=== PATIENT | male | born 1950 | race Caucasian/White ===

== ENCOUNTER 2018-10-24 13:18 | Observation (INO) ==
--- NOTE | 2018-10-24 13:48 | ED ---
HPI General Chief complaint: Respiratory Symptoms Stated complaint: Coughing up blood/chest congestion Time Seen by Provider: 10/24/18 13:32 Source: patient Mode of arrival: ambulatory Limitations: no limitations History of Present Illness HPI narrative: Patient has a past medical history of hypertension cholecystectomy tonsillectomy hernia repair and eye surgery. Patient used to be a primary care patient of Dr. Price, however dr price has since retired. patient came in complaining of productive cough over the last 2 days initially with yellow sputum, which then this morning turned into bloody sputum. Patient denies any night sweats weight loss. And according to the patient is only on carvedilol and lisinopril. has no close follow up currently. Related Data Home Medications Medication Instructions Recorded Confirmed carvedilol 6.25 mg PO BID 06/07/18 10/24/18 lisinopril 5 mg PO BID 06/07/18 10/24/18 Previous Rx's Medication Instructions Recorded amoxicillin-pot clavulanate 1 tab PO Q12H 6 Days #12 tab 10/25/18 [Augmentin] apixaban [Eliquis] 5 mg PO BID 60 Days #240 tab 10/25/18 apixaban [Eliquis] 10 mg PO BID 6 Days #24 tab 10/25/18 benzonatate [Tessalon Perles] 100 mg PO Q8H PRN 5 Days cap 10/25/18 guaifenesin [Mucinex] 600 mg PO BID 5 Days #10 tab 10/25/18 Allergies Allergy/AdvReac Type Severity Reaction Status Date / Time No Known Allergies Allergy Verified 10/24/18 13:24 Review of Systems ROS: all other systems reviewed are negative PMFSH History History Provided By: Patient Medical History Medical History Diabetes (Acute) HTN (hypertension) (Acute) Surgical History Surgical History History of eye surgery (Acute) History of hernia repair (Acute) Hx of cholecystectomy (Acute) Hx of tonsillectomy (Acute) Family History Family History Other Family history in first degree relatives is unremarkable Family history non-contributory Social History Social History Substance History: No History of Abuse Second Hand Smoke Exposure: No Smoking Status: Never smoker How Often Do You Have a Drink Containing Alcohol: Monthly or less Recent Travel in [facility] within the Last 8 Weeks: No Recent Out of Country Travel within the Last 8 Weeks: No Exam HENMT Head: normocephalic and atraumatic Nose: no nasal discharge and no epistaxis Mouth: moist mucous membranes Eyes Sclera: normal sclerae Pupils: PERRL Neck Neck: trachea midline and no JVD Resp Effort & Inspection: normal respiratory effort, able to speak in complete sentences and no use of accessory muscles Auscultation: rhonchi left lower Cardio Rate: regular rate Rhythm: regular rhythm Heart Sounds: no murmurs GI Inspection: non-distended Palpation: soft, no hepatosplenomegaly and nontender Skin General: dry skin (warm) Neuro General: alert and awake Cranial Nerves: other Speech: speech normal Motor: no movement abnormalities noted Extrem General: normal to inspection, no clubbing, no cyanosis and edema (LLE edema, without erythema or streaking) Laterality: on the left Psych Mood: congruent mood Affect: normal affect Judgment: judgment good Course Initial Documented Vital Signs Temperature 97.9 F 10/24/18 13:21 Pulse Rate 67 10/24/18 13:21 Respiratory Rate 18 10/24/18 13:21 Blood Pressure 155/76 H 10/24/18 13:21 Pulse Oximetry 97 10/24/18 13:21 Last Documented Vital Signs Temperature 96.8 F L 10/25/18 08:32 Pulse Rate 71 10/25/18 08:32 Respiratory Rate 24 10/25/18 08:32 Blood Pressure 153/98 H 10/25/18 08:32 Pulse Oximetry 94 L 10/25/18 08:32 Medical Decision Making [facility] Narrative Medical Screen Exam Complete: Yes Emergency Medical Condition: Yes Medical Records Medical records reviewed: Yes I reviewed the patient's medical records. Lab Data Lab results reviewed: Yes I reviewed the patient's lab results. Result diagrams: 10/25/18 07:33 10/25/18 07:33 Lab Results 10/24/18 10/24/18 10/24/18 Range/Units 13:57 13:57 13:57 CBC w Diff Auto diff final WBC 5.6 (4.0-11.0) th/mm3 RBC 4.36 L (4.50-5.90) mil/mm3 Hgb 13.8 (13.0-17.0) gm/dL Hct 41.4 (39.0-51.0) % MCV 94.9 (80.0-100.0) fL MCH 31.6 (27.0-34.0) pg MCHC 33.3 (32.0-36.0) % RDW 13.4 (11.6-17.2) % Plt Count 118 L (150-450) th/mm3 MPV 8.9 (7.0-11.0) fL Neut % (Auto) 61.3 (16.0-70.0) % Lymph % (Auto) 25.2 (9.0-44.0) % [place] % (Auto) 10.1 H (0.0-8.0) % Eos % (Auto) 2.4 (0.0-4.0) % Baso % (Auto) 1.0 (0.0-2.0) % Neut # (Auto) 3.4 (1.8-7.7) th/mm3 Lymph # (Auto) 1.4 (1.0-4.8) th/mm3 [place] # (Auto) 0.6 (0.0-0.9) th/mm3 Eos # (Auto) 0.1 (0.0-0.4) th/mm3 Baso # (Auto) 0.1 (0.0-0.2) th/mm3 WBC Differential . Differential Comment . PT 10.6 (9.8-11.6) sec INR 1.0 Ratio APTT 26.8 (23.4-31.7) sec Sodium 141 (136-145) meq/L Potassium 4.5 (3.5-5.1) meq/L Chloride 106 (98-107) meq/L Carbon Dioxide 29.3 (21.0-32.0) meq/L Anion Gap 6 (5-15) meq/L BUN 13 (7-18) mg/dL Creatinine 0.91 (0.60-1.30) mg/dL Estimated GFR 82 L (>89) mL/min Random Glucose 129 H (74-106) mg/dL Calcium 8.4 L (8.5-10.1) mg/dL Troponin I Less than 0.02 L (0.02-0.05) ng/mL 10/24/18 10/25/18 10/25/18 Range/Units 21:20 07:33 07:33 CBC w Diff Auto diff final WBC 4.5 (4.0-11.0) th/mm3 RBC 4.78 (4.50-5.90) mil/mm3 Hgb 14.9 (13.0-17.0) gm/dL Hct 45.5 (39.0-51.0) % MCV 95.3 (80.0-100.0) fL MCH 31.2 (27.0-34.0) pg MCHC 32.8 (32.0-36.0) % RDW 13.7 (11.6-17.2) % Plt Count 135 L (150-450) th/mm3 MPV 7.8 (7.0-11.0) fL Neut % (Auto) 61.0 (16.0-70.0) % Lymph % (Auto) 23.6 (9.0-44.0) % [place] % (Auto) 12.0 H (0.0-8.0) % Eos % (Auto) 3.0 (0.0-4.0) % Baso % (Auto) 0.4 (0.0-2.0) % Neut # (Auto) 2.8 (1.8-7.7) th/mm3 Lymph # (Auto) 1.1 (1.0-4.8) th/mm3 [place] # (Auto) 0.5 (0.0-0.9) th/mm3 Eos # (Auto) 0.1 (0.0-0.4) th/mm3 Baso # (Auto) 0.0 (0.0-0.2) th/mm3 WBC Differential . Differential Comment . PT (9.8-11.6) sec INR Ratio APTT 28.7 (23.4-31.7) sec Sodium 141 (136-145) meq/L Potassium 4.3 (3.5-5.1) meq/L Chloride 103 (98-107) meq/L Carbon Dioxide 29.9 (21.0-32.0) meq/L Anion Gap 8 (5-15) meq/L BUN 10 (7-18) mg/dL Creatinine 0.82 (0.60-1.30) mg/dL Estimated GFR Greater than 89 (>89) mL/min Random Glucose 127 H (74-106) mg/dL Calcium 8.8 (8.5-10.1) mg/dL Troponin I (0.02-0.05) ng/mL Imaging Data Attestation: I personally reviewed and interpreted this imaging study as follows : Radiologist's impression: Chest CTA 10/24/18 13:43 CONCLUSION: This study is negative for pulmonary embolism. Venous Doppler Study 10/24/18 14:15 CONCLUSION: 1. DVT in the left lower extremity as above. ECG Data EKG Prior to Arrival: No Attestation: I personally reviewed and interpreted this ECG as follows: Prior ECG tracings: not available for review Interpretation: Normal sinus rhythm, 66 bpm, left axis deviation, borderline right bundle branch block pattern Discharge Plan Discharge Disposition Patient Disposition: 30 Still Patient Discharge Condition Condition: Stable Discharge Order Discharge Orders: Discharge Order (Routine); Ordered 10/25/18 Ordered By: Jenna Myers Discharge Details Anticipated Discharge Date: 10/25/18 Discharge Comment: please take Eliquis 10 mg PO BID x 6 days and then 5 mg PO BID thereafter. Diagnosis: Left lower lobe pneumonia, DVT of lower limb, acute Physicians Team ED Provider: Jimenez Vera Primary Care Provider: Primary Care Dalila Payne Attending Provider: Caden Regalado ED Status: Left Department Discharge Information Discharge Date/Time: 10/24/18 17:05
[2018-10-24 14:17] LABS: Chloride 106 meq/L (98-107); Potassium 4.5 meq/L (3.5-5.1); Sodium 141 meq/L (136-145)
[2018-10-24 14:19] LABS: Calcium 8.4 mg/dL (8.5-10.1)
[2018-10-24 14:20] LABS: Anion Gap 6 meq/L (5-15); Blood Urea Nitrogen 13 mg/dL (7-18); Carbon Dioxide 29.3 meq/L (21.0-32.0); Glucose,Random 129 mg/dL (74-106)
[2018-10-24 14:23] LABS: Glomerular Filtration Rate 82 mL/min (>89)
--- NOTE | 2018-10-24 14:41 | US ---
EXAM DATE: 10/24/2018 2:38 PM EST AGE/SEX: 68 years / Male INDICATIONS: Left leg edema. CLINICAL DATA: This is the patient's initial encounter. Patient reports that signs and symptoms have been present for 1 week and indicates a pain score of 0/10. MEDICAL/SURGICAL HISTORY: Hypertension. Tonsillectomy. Cholecystectomy. Eye surgery x7. Hernia repair. COMPARISON: No prior exams available for comparison. TECHNIQUE: Venous ultrasound of both lower extremities was performed from the inguinal ligament to t he proximal calf. Real-time, color Doppler and spectral tracing, compression and augmentation techni ques were used. FINDINGS: The examination demonstrates deep venous thrombosis throughout the left thigh. It should b e noted, the patient has a duplicated saphenofemoral venous system. There is thrombus seen in both. CONCLUSION: 1. DVT in the left lower extremity as above. Electronically signed by: Enrique Fortune MD 10/24/2018 2:40 PM EST
[2018-10-24] MEDS ORDERED: Heparin 10,000 UNITS/10 ML Vial (for IV use) IV.PUSH STA (14:47)
--- NOTE | 2018-10-24 15:04 | CT ---
EXAM DATE: 10/24/2018 2:53 PM EST AGE/SEX: 68 years / Male INDICATIONS: Cough x 3 days. Hemoptysis today. CLINICAL DATA: This is the patient's initial encounter. Patient reports that signs and symptoms have been present for 3 days and indicates a pain score of 0/10. MEDICAL/SURGICAL HISTORY: Hypertension. Cholecystectomy. Inguinal hernia repair. RADIATION DOSE: 19.95 CTDI (mGy) COMPARISON: No prior exams available for comparison. TECHNIQUE: Volumetric scanning was performed using a multi-row detector CT scanner during bolus infu agustina of 75 ml Omnipaque 350 (iohexol) nonionic water-soluble contrast as a single exam dose. The esvin a was post processed with a variety of visualization algorithms including full volume maximum intensi ty projection and sliding thin slab reformation. Using automated exposure control and adjustment of the mA and/or kV according to patient size, radiation dose was kept as low as reasonably achievable t o obtain optimal diagnostic quality images. DICOM format image data is available electronically for review and comparison. FINDINGS: Pulmonary Arteries: No filling defects are seen in the pulmonary arteries out to the subsegmental ve ssels. The left and right pulmonary arteries are normal in diameter. Lung: Infiltrate in the posterior left lung base. Mild basilar bronchiectasis. Slight atelectasis in the right base. Effusion: None. Mediastinum: No evidence of mediastinal or hilar adenopathy. Other: The axilla is unremarkable. CONCLUSION: This study is negative for pulmonary embolism. Electronically signed by: Sami Fong MD 10/24/2018 3:03 PM EST
[2018-10-24 15:28] LABS: Activated Partial Thrombo Time 26.8 sec (23.4-31.7); Prothrombin Time 10.6 sec (9.8-11.6)
[2018-10-24] MEDS ORDERED: Azithromycin Inj 500 MG in Sodium Chlor 0.9% Inj 250 ML IV.SIG ONE (15:30)
[2018-10-24] MEDS ORDERED: Bisacodyl 10 MG Supp RECTAL PRN (16:48)
[2018-10-24] MEDS ORDERED: Acetaminophen 325 MG Tablet PO PRN (16:48)
--- NOTE | 2018-10-24 17:12 | P.HP ---
History of Present Illness Primary Care Physician: No Primary Care Physician Chief Complaint: Cough and Left lower leg swelling History of Present Illness: This is a pleasant 68-year-old male patient with a known medical history of hypertension who presented to the ED with multiple complaints including cough with hemoptysis as well as left lower extremity swelling. Patient states over the past week he has had a productive cough has been yellow tinged in color although this morning he states he noticed bright red blood when he coughed. He denies any recent antibiotic use. He was, chills, headache, chest pain, vomiting, nausea, vomiting, diarrhea or dysuria, night sweats or weight loss. He does also complain that his left lower leg has been swelling, denies any pain with ambulation or movement. Patient does not currently have a primary care physician, was following with Dr. Price although he has now switched insurances and was looking for a primary care provider. Patient does follow with director corporate compliance Dr. Cedillo, last seen a month and a half ago without any changes to his medications. Upon exam patient sitting up in bed comfortably no apparent distress. Denies any pain. Has not had any continued hemoptysis. A left lower extremity ultrasound was done showing presence of DVT. A CT of the chest was negative for PE. Does show left lower lung pneumonia. - Diagnosis (1) Left lower lobe pneumonia (2) DVT of lower limb, acute Review of Systems All other systems reviewed negative except as stated in HPI PMFSH - History History Provided By: Patient - Medical History Medical History: Medical History (Last Reviewed 10/24/18 @ 17:11 by Jenna Myers) HTN (hypertension) - Surgical History Surgical History: Surgical History (Last Reviewed 10/24/18 @ 17:11 by Jenna Myers) Hx of cholecystectomy History of eye surgery History of hernia repair Hx of tonsillectomy - Family History Family History: Family History (Last Updated 10/24/18 @ 17:11 by Jenna Myers) Other Family history in first degree relatives is unremarkable Family history non-contributory - Social History I have reviewed the patient's Social History: Yes - Tobacco History Second Hand Smoke Exposure: No Smoking Status: Never smoker - Alcohol History How Often Do You Have a Drink Containing Alcohol: Monthly or less - Substance Use History Substance History: No History of Abuse - Travel History Recent Travel in the [facility] Within the Last 8 Weeks: No Recent Travel Out of the Country Within the Last 8 Weeks: No - Immunization History Tetanus Immunization: >5 Years Medications and Allergies Active Medications: Active Medications Acetaminophen (Tylenol) 650 mg PO Q4H PRN PRN Reason: Temp > 100.4 Al Hydroxide/Mg Hydroxide (Milk Of Magnesia Liq) 30 ml PO Q12H PRN PRN Reason: Mild Constipation Bisacodyl (Dulcolax Supp) 10 mg RECTAL DAILY PRN PRN Reason: SEVERE CONSITIPATION Lactulose (Lactulose Liq) 30 ml PO DAILY PRN PRN Reason: SEVERE CONSITIPATION Ondansetron HCl (Zofran Inj) 4 mg IV.PUSH Q6H PRN PRN Reason: NAUSEA OR VOMITING Sennosides (Senokot) 17.2 mg PO Q12H PRN PRN Reason: Moderate Constipation Sodium Chloride (Ns Flush) 2 ml IV.FLUSH BID [place] Sodium Chloride (Ns Flush) 2 ml IV.FLUSH PRN PRN PRN Reason: FLUSH AFTER USING IV ACCESS Allergies Allergy/AdvReac Type Severity Reaction Status Date / Time No Known Allergies Allergy Verified 10/24/18 13:24 Home Medications Medication Instructions Recorded Confirmed Type carvedilol 6.25 mg PO BID 06/07/18 10/24/18 History lisinopril 5 mg PO BID 06/07/18 10/24/18 History Exam Vital signs: Vital Signs 10/24/18 13:21 10/24/18 14:48 10/24/18 16:53 Temperature 97.9 F Pulse Rate 67 68 77 Respiratory Rate 18 17 20 Blood Pressure 155/76 H 152/84 H 152/82 H Pulse Oximetry 97 96 96 Intake & Output 10/23/18 10/24/18 10/24/18 18:59 06:59 18:59 Intake Total 250 / 250 Balance 250 / 250 Weight 108 kg Intake: IV 250 / 250 Azithromycin Inj 500 MG In NS 250 / 250 Inj 250 ML @ 250 mls/hr IV.SIG ONCE ONE Rx#:[id number] Narrative: GENERAL: Well-developed, well-nourished patient in NAD. Comfortable on room air. SKIN: Warm and dry. No rash. HEAD: Normocephalic. Atraumatic. EYES: Pupils equal and round. No scleral icterus. No injection or drainage. ENT: No nasal bleeding or discharge. Mucous membranes pink and moist. NECK: Supple. Trachea midline. CARDIOVASCULAR: Regular rate and rhythm. S1, S2 noted. No murmur appreciated. RESPIRATORY: No accessory muscle use. Diminished breath sounds, no rhonchi or crackles. Breath sounds equal bilaterally. GASTROINTESTINAL: Abdomen soft, non-tender, nondistended. Normoactive bowel sounds x4. MUSCULOSKELETAL: No obvious deformities. Left lower extremity swelling with 2+ pitting edema negative Homans sign. NEUROLOGICAL: Awake and alert. No obvious cranial nerve deficits. Motor grossly within normal limits. 5/5 muscle strength in bilateral upper and lower extremities. Normal speech. PSYCHIATRIC: Appropriate mood and affect; insight and judgment normal. Results - Labs CBC & Chem 7: 10/24/18 13:57 Labs: Laboratory Results - last 24 hr 10/24/18 10/24/18 13:57 13:57 PT 10.6 INR 1.0 APTT 26.8 Sodium 141 Potassium 4.5 Chloride 106 Carbon Dioxide 29.3 Anion Gap 6 BUN 13 Creatinine 0.91 Estimated GFR 82 L Random Glucose 129 H Calcium 8.4 L Troponin I Less than 0.02 L - Imaging Impressions Chest CTA 10/24/18 13:43 CONCLUSION: This study is negative for pulmonary embolism. Venous Doppler Study 10/24/18 14:15 CONCLUSION: 1. DVT in the left lower extremity as above. Caprini VTE Risk Assessment Caprini VTE Risk Assessment: Moderate/High Risk (score >= 2) Caprini Risk Assessment Model: Point Value = 1 Point Value = 2 Point Value = 3 Point Value = 5 Age 41-60 Minor surgery BMI > 25 kg/m2 Swollen legs Varicose veins or History of unexplained or recurrent spontaneous Oral contraceptives or hormone replacement Sepsis (< 1 month) Serious lung disease, including pneumonia (< 1 month) Abnormal pulmonary function Acute myocardial infarction Congestive heart failure (< 1 month) History of inflammatory bowel disease Medical patient at bed rest Age 61-74 Arthroscopic surgery Major open surgery (> 45 min) Laparoscopic surgery (> 45 min) Malignancy Confined to bed (> 72 hours) Immobilizing plaster cast Central venous access Age >= 75 History of VTE Family history of VTE Factor V Leiden Prothrombin [id number] Lupus anticoagulant Anticardiolipin antibodies Elevated serum homocysteine Heparin-induced thrombocytopenia Other congenital or acquired thrombophilia Stroke (< 1 month) Elective arthroplasty Hip, pelvis, or leg fracture Acute spinal cord injury (< 1 month) Prophylaxis Regimen: Total Risk Factor Score Risk Level Prophylaxis Regimen 0-1 Low Early ambulation 2 Moderate Order ONE of the following: *Sequential Compression Device (SCD) *Heparin 5000 units SQ BID 3-4 Higher Order ONE of the following medications: *Heparin 5000 units SQ TID *Enoxaparin/Lovenox 40 mg SQ daily (WT < 150 kg, CrCl > 30 mL/min) *Enoxaparin/Lovenox 30 mg SQ daily (WT < 150 kg, CrCl > 10-29 mL/min) *Enoxaparin/Lovenox 30 mg SQ BID (WT < 150 kg, CrCl > 30 mL/min) AND/OR *Sequential Compression Device (SCD) 5 or more Highest Order ONE of the following medications: *Heparin 5000 units SQ TID (Preferred with Epidurals) *Enoxaparin/Lovenox 40 mg SQ daily (WT < 150 kg, CrCl > 30 mL/min) *Enoxaparin/Lovenox 30 mg SQ daily (WT < 150 kg, CrCl > 10-29 mL/min) *Enoxaparin/Lovenox 30 mg SQ BID (WT < 150 kg, CrCl > 30 mL/min) AND *Sequential Compression Device (SCD) Assessment and Plan - Assessment (1) Left lower lobe pneumonia Code(s): J18.1 - Lobar pneumonia, unspecified organism Status: Acute (2) DVT of lower limb, acute Code(s): I82.409 - Acute embolism and thrombosis of unspecified deep veins of unspecified lower extremity Status: Acute - Plan This is a pleasant 68-year-old male patient who presented to the ED with: Community-acquired pneumonia Productive cough with hemoptysis -Patient complains of productive cough with is yellow tinged with presence of one-time episode of hemoptysis this am. Denies any night sweats or weight loss. Is breathing comfortable on RA. -Chest CT reviewed which is negative for PE although a left lower lobe infiltrate has been noted. -Will check sputum culture. Follow. -Was given Azithromycin in ED, continue. Will also add Ceftriaxone. -Added CBC in lab, assess for leukocytosis. Follow. -Will add incentive spirometer. Encourage deep breathing and coughing. -Supplemental O2 as needed to keep oxygen saturations greater than 90%. Comfortable on room air at this time. -Duo nebs as needed. Add Mucinex. Robitussin for cough. -Supportive care. Left lower extremity DVT -Patient complaint of a 2-week history of left lower extremity swelling. -Left lower extremity US done and showing a left lower extremity thigh DVT. -Was given Heparin in ED. Will start on Eliquis. Will initially be started on 10 mg twice daily times 7 days and then reduce to 5 mg twice daily. -CM has been consulted, patient does not have a PCP to follow up with at this current time due to his prior PCP being out of network now. Will need coupon code and possibly help with establishing with a PCP. -Pain is controlled. Hypertension, chronic -Continue home medications. -Monitor BP trends. DVT Prophylaxis: SCD on right leg. Started on Eliquis. (1) Left lower lobe pneumonia Qualifiers: Pneumonia type: due to unspecified organism Qualified Code(s): J18.1 - Lobar pneumonia, unspecified organism (2) DVT of lower limb, acute Qualifiers: Affected thrombotic vein of extremity: unspecified vein of extremity Laterality: left Qualified Code(s): I82.402 - Acute embolism and thrombosis of unspecified deep veins of left lower extremity
[2018-10-24] MEDS ORDERED: Benzonatate 100 MG Capsule PO PRN (17:25)
[2018-10-24 17:41] LABS: Baso # (Auto) 0.1 th/mm3 (0.0-0.2); Eos # (Auto) 0.1 th/mm3 (0.0-0.4); Eos % (Auto) 2.4 % (0.0-4.0); Hematocrit 41.4 % (39.0-51.0); Hemoglobin 13.8 gm/dL (13.0-17.0); Lymph # (Auto) 1.4 th/mm3 (1.0-4.8); Lymph % (Auto) 25.2 % (9.0-44.0); Mean Corpuscular HGB Conc 33.3 % (32.0-36.0); Mean Corpuscular Hemoglobin 31.6 pg (27.0-34.0); Mean Corpuscular Volume 94.9 fL (80.0-100.0); Mean Platelet Volume 8.9 fL (7.0-11.0); Mono # (Auto) 0.6 th/mm3 (0.0-0.9); Mono % (Auto) 10.1 % (0.0-8.0); Neut # (Auto) 3.4 th/mm3 (1.8-7.7); Neut % (Auto) 61.3 % (16.0-70.0); Platelet Count 118 th/mm3 (150-450); Red Blood Count 4.36 mil/mm3 (4.50-5.90); Red Cell Distribution Width 13.4 % (11.6-17.2); White Blood Count 5.6 th/mm3 (4.0-11.0)
[2018-10-24] MEDS: guaiFENesin 600 MG ER Tablet PO SCH (20:10)
[2018-10-24] MEDS: Carvedilol 6.25 MG Tablet PO SCH (20:10)
[2018-10-24] MEDS: Lisinopril 5 MG Tablet PO SCH (20:10)
[2018-10-25 07:47] LABS: Baso % (Auto) 0.4 % (0.0-2.0); Eos # (Auto) 0.1 th/mm3 (0.0-0.4); Hematocrit 45.5 % (39.0-51.0); Hemoglobin 14.9 gm/dL (13.0-17.0); Lymph # (Auto) 1.1 th/mm3 (1.0-4.8); Lymph % (Auto) 23.6 % (9.0-44.0); Mean Corpuscular HGB Conc 32.8 % (32.0-36.0); Mean Corpuscular Hemoglobin 31.2 pg (27.0-34.0); Mean Corpuscular Volume 95.3 fL (80.0-100.0); Mean Platelet Volume 7.8 fL (7.0-11.0); Mono # (Auto) 0.5 th/mm3 (0.0-0.9); Neut # (Auto) 2.8 th/mm3 (1.8-7.7); Platelet Count 135 th/mm3 (150-450); Red Blood Count 4.78 mil/mm3 (4.50-5.90); Red Cell Distribution Width 13.7 % (11.6-17.2); White Blood Count 4.5 th/mm3 (4.0-11.0)
[2018-10-25 08:06] LABS: Chloride 103 meq/L (98-107); Potassium 4.3 meq/L (3.5-5.1); Sodium 141 meq/L (136-145)
[2018-10-25 08:10] LABS: Anion Gap 8 meq/L (5-15); Blood Urea Nitrogen 10 mg/dL (7-18); Calcium 8.8 mg/dL (8.5-10.1); Carbon Dioxide 29.9 meq/L (21.0-32.0); Glucose,Random 127 mg/dL (74-106)
[2018-10-25 08:14] LABS: Glomerular Filtration Rate Greater Than 89 mL/min (>89)
--- NOTE | 2018-10-25 08:18 | P.PNIM ---
Subjective Interval history: Follow-up left lower DVT and pneumonia. Patient seen and examined, lying in bed comfortably no apparent distress. States that his left lower leg seems to be improving, denies any shortness of breath or chest pain. Afebrile. Vital signs stable. Physical Exam Vital signs: Vital Signs 10/24/18 13:21 10/24/18 14:48 10/24/18 16:53 Temperature 97.9 F Pulse Rate 67 68 77 Respiratory Rate 18 17 20 Blood Pressure 155/76 H 152/84 H 152/82 H Pulse Oximetry 97 96 96 10/24/18 17:47 10/24/18 17:52 10/24/18 19:30 Temperature 96.6 F L Pulse Rate 77 68 Respiratory Rate 15 Blood Pressure 149/89 H Pulse Oximetry 96 98 10/24/18 20:00 10/24/18 20:59 10/25/18 00:00 Temperature 98.5 F 98.6 F Pulse Rate 75 69 65 Respiratory Rate 18 18 Blood Pressure 159/85 H 149/81 H Pulse Oximetry 94 L 93 L 10/25/18 00:01 10/25/18 03:00 Temperature Pulse Rate 67 62 Respiratory Rate Blood Pressure Pulse Oximetry Intake & Output 10/24/18 10/25/18 10/25/18 18:59 06:59 18:59 Intake Total 350 / 350 730 / 730 Output Total 800 / 800 1050 / 1050 Balance -450 / -450 -320 / -320 Weight 111.4 kg 111.5 kg Intake: IV 350 / 350 Azithromycin Inj 500 MG In NS 250 / 250 Inj 250 ML @ 250 mls/hr IV.SIG ONCE ONE Rx#:[id number] Rocephin Inj 1,000 MG In NS Inj 100 / 100 100 ML @ 200 mls/hr IV.SIG Q24H ADEBAYO Rx#:[id number] Oral 730 / 730 Output: Urine 800 / 800 1050 / 1050 Other: Date of Last Bowel Movement 10/24/18 10/24/18 Weight On Admission 111.4 kg Narrative: GENERAL: Well-developed, well-nourished patient in [facility]. Comfortable on room air. SKIN: Warm and dry. No rash. HEAD: Normocephalic. Atraumatic. EYES: Pupils equal and round. No scleral icterus. No injection or drainage. ENT: No nasal bleeding or discharge. Mucous membranes pink and moist. NECK: Supple. Trachea midline. CARDIOVASCULAR: Regular rate and rhythm. S1, S2 noted. No murmur appreciated. RESPIRATORY: No accessory muscle use. Diminished breath sounds, no rhonchi or crackles. Breath sounds equal bilaterally. GASTROINTESTINAL: Abdomen soft, non-tender, nondistended. Normoactive bowel sounds x4. MUSCULOSKELETAL: No obvious deformities. Left lower extremity swelling with 1+ pitting edema negative Homans sign. NEUROLOGICAL: Awake and alert. No obvious cranial nerve deficits. Motor grossly within normal limits. 5/5 muscle strength in bilateral upper and lower extremities. Normal speech. PSYCHIATRIC: Appropriate mood and affect; insight and judgment normal. Results - Labs CBC & Chem 7: 10/25/18 07:33 10/25/18 07:33 Laboratory Results - last 24 hr 10/24/18 10/24/18 10/24/18 13:57 13:57 13:57 CBC w Diff Auto diff final WBC 5.6 RBC 4.36 L Hgb 13.8 Hct 41.4 MCV 94.9 MCH 31.6 MCHC 33.3 RDW 13.4 Plt Count 118 L MPV 8.9 Neut % (Auto) 61.3 Lymph % (Auto) 25.2 [place] % (Auto) 10.1 H Eos % (Auto) 2.4 Baso % (Auto) 1.0 Neut # (Auto) 3.4 Lymph # (Auto) 1.4 [place] # (Auto) 0.6 Eos # (Auto) 0.1 Baso # (Auto) 0.1 WBC Differential . Differential Comment . PT 10.6 INR 1.0 APTT 26.8 Sodium 141 Potassium 4.5 Chloride 106 Carbon Dioxide 29.3 Anion Gap 6 BUN 13 Creatinine 0.91 Estimated GFR 82 L Random Glucose 129 H Calcium 8.4 L Troponin I Less than 0.02 L 10/24/18 10/25/18 10/25/18 21:20 07:33 07:33 CBC w Diff Auto diff final WBC 4.5 RBC 4.78 Hgb 14.9 Hct 45.5 MCV 95.3 MCH 31.2 MCHC 32.8 RDW 13.7 Plt Count 135 L MPV 7.8 Neut % (Auto) 61.0 Lymph % (Auto) 23.6 [place] % (Auto) 12.0 H Eos % (Auto) 3.0 Baso % (Auto) 0.4 Neut # (Auto) 2.8 Lymph # (Auto) 1.1 [place] # (Auto) 0.5 Eos # (Auto) 0.1 Baso # (Auto) 0.0 WBC Differential . Differential Comment . PT INR APTT 28.7 Sodium 141 Potassium 4.3 Chloride 103 Carbon Dioxide 29.9 Anion Gap 8 BUN 10 Creatinine 0.82 Estimated GFR Greater than 89 Random Glucose 127 H Calcium 8.8 Troponin I - Imaging Impressions Chest CTA 10/24/18 13:43 CONCLUSION: This study is negative for pulmonary embolism. Venous Doppler Study 10/24/18 14:15 CONCLUSION: 1. DVT in the left lower extremity as above. Assessment and Plan - Assessment (1) Left lower lobe pneumonia Code(s): J18.1 - Lobar pneumonia, unspecified organism Status: Acute (2) DVT of lower limb, acute Code(s): I82.409 - Acute embolism and thrombosis of unspecified deep veins of unspecified lower extremity Status: Acute - Plan This is a pleasant 68-year-old male patient who presented to the ED with: Community-acquired pneumonia Productive cough with hemoptysis -Patient complains of productive cough with is yellow tinged with presence of one-time episode of hemoptysis this am. Denies any night sweats or weight loss. Is breathing comfortable on RA. -Chest CT reviewed which is negative for PE although a left lower lobe infiltrate has been noted. -Will check sputum culture. Pending. -Was given Azithromycin in ED, continue. Will also add Ceftriaxone. -Added CBC in lab, assess for leukocytosis. No leukocytosis. -Added incentive spirometer. Encourage deep breathing and coughing. -Supplemental O2 as needed to keep oxygen saturations greater than 90%. Comfortable on room air at this time. -Duo nebs as needed. Add Mucinex. Robitussin for cough. Cough improved. -Supportive care. Left lower extremity DVT -Patient complaint of a 2-week history of left lower extremity swelling. -Left lower extremity US done and showing a left lower extremity thigh DVT. -Was given Heparin in ED. Will start on Eliquis. Will initially be started on 10 mg twice daily times 7 days and then reduce to 5 mg twice daily. -CM has been consulted, patient does not have a PCP to follow up with at this current time due to his prior PCP being out of network now. Will need coupon code and possibly help with establishing with a PCP. -Pain is controlled. Hypertension, chronic -Continue home medications. -Monitor BP trends. DVT Prophylaxis: SCD on right leg. Started on Eliquis. Discharge Planning: Patient clinically improved. Will likely discharge home later this afternoon. Case management assisting with PCP follow-up. And coupon card for Eliquis. (1) Left lower lobe pneumonia Qualifiers: Pneumonia type: due to unspecified organism Qualified Code(s): J18.1 - Lobar pneumonia, unspecified organism (2) DVT of lower limb, acute Qualifiers: Affected thrombotic vein of extremity: unspecified vein of extremity Laterality: left Qualified Code(s): I82.402 - Acute embolism and thrombosis of unspecified deep veins of left lower extremity
[2018-10-25 08:34] VITALS: BP 153/98; PULSE 71; RESP 24; TEMP 96.8; O2SAT 94
[2018-10-25] MEDS: Lisinopril 5 MG Tablet PO SCH (08:50)
[2018-10-25] MEDS: Carvedilol 6.25 MG Tablet PO SCH (08:50)
[2018-10-25] MEDS: guaiFENesin 600 MG ER Tablet PO SCH (08:50)
[2018-10-25] MEDS ORDERED: Azithromycin Inj 500 MG in Sodium Chlor 0.9% Inj 250 ML IV.SIG SCH (12:00)
--- NOTE | 2018-10-25 12:12 | ECG ---
Date Performed: 10/24/2018 Time Performed: 13:59:43 PTAGE: 68 years EKG: Sinus rhythm MARKED LEFT AXIS DEVIATION MODERATE INTRAVENTRICULAR CONDUCTION DELAY ABNORMAL ECG Since the PREVIOUS TRACING , no significant change noted PREVIOUS TRACIN06/21/2016 10.26 DOCTOR: Bj Werner Interpretating Date/Time 10/25/2018 12:10:36
== END 2018-10-25 10:10 | disposition home or self-care (01) ==
LOC: PHEDA 13:18 → PHEFT 13:18 → PH3 17:02
PROVIDERS: ADMIT Internal Medicine; ATTEND Internal Medicine
DX: I10 Essential (primary) hypertension; R60.0 Localized edema; R04.2 Hemoptysis; J18.1 Lobar pneumonia, unspecified organism; Z79.01 Long term (current) use of anticoagulants; R09.89 Other specified symptoms and signs involving the circulatory and respiratory systems; E11.9 Type 2 diabetes mellitus without complications; I82.4Y2 Acute embolism and thrombosis of unspecified deep veins of left proximal lower extremity; Z79.899 Other long term (current) drug therapy